=== PATIENT | female | born 1955 | race Two or more races ===

== ENCOUNTER → 2024-09-29 | Outpatient (CLI) | payer OTHER, SELFPAY ==
--- NOTE | 2024-09-29 09:00 | XR_ITS ---
Examination: Screening digital mammography, bilateral Computer aided detection 3-D breast Tomosynthesis, bilateral Date and time of exam: 09/29/2024, 9:10 AM Comparisons: Not available. If prior mammograms can be obtained recommend comparison with today's exam Indications: Screening Technique: Nonmagnified MLO, CC views of the breasts to been obtained, reconstructed from 3-D Tomosynthesis images. R2 computer aided detection program utilized for evaluation of suspicious masses and/or abnormal calcifications. 3-D Tomosynthesis images obtained. Technologist: Findings: There are scattered areas of fibroglandular density. Ill-defined spiculated mass right upper inner quadrant, posterior depth. Otherwise, no evidence of abnormal masses or suspicious calcifications. Impression: Spiculated mass right upper inner quadrant. Spot compression views and ultrasound evaluation recommended BI-RADS category 0: Incomplete assessment; need additional imaging evaluation
== END | disposition home or self-care (01) ==
LOC: CDIM 08:57
PROVIDERS: Referring Provider Physician Assistant Medical; Visit Provider Physician Assistant Medical
DX: Z12.31 Encounter for screening mammogram for malignant neoplasm of breast (principal); N63.12 Unspecified lump in the right breast, upper inner quadrant; R92.8 Other abnormal and inconclusive findings on diagnostic imaging of breast
CPT/HCPCS: 77063; 77067

== ENCOUNTER → 2025-01-02 | Outpatient (CLI) | payer OTHER, SELFPAY ==
--- NOTE | 2025-01-02 08:58 | XR_ITS ---
Examination: Diagnostic digital mammography, unilateral, right Computer aided detection 3-D breast Tomosynthesis, unilateral Date and time of exam: January 02, 2025 0910 hours INDICATIONS: Spiculated mass inner upper right breast on mammogram September 29, 2017 Technique: Nonmagnified MLO, CC views of the right breast have been obtained, reconstructed from 3-D Tomosynthesis images. R2 computer aided detection program utilized for evaluation of suspicious masses and/or abnormal calcifications. 3-D Tomosynthesis images obtained. Findings: Scattered areas of fibroglandular density 2:00 spiculated mass right breast posterior depth Impression: BI-RADS category 4: Suspicious for malignancy Suspicious mass 2:00 position right breast, biopsy is needed to exclude breast carcinoma This mass is amenable to ultrasound-guided breast biopsy for diagnosis
--- NOTE | 2025-01-02 09:00 | XR_ITS ---
Examination: Breast ultrasound complete, bilateral Date and time of exam: January 02, 2025 0807 hours INDICATIONS: Mammogram September 29, 2024 spiculated mass upper inner quadrant right breast Technique: Real-time grayscale ultrasonographic imaging bilateral breasts, including all 4 quadrants as well as nipple retroareolar and axillary regions. Findings: Sonographic images right breast 2:00 irregular mass spiculated margins 11 x 10 x 11 mm IMPRESSION: BI-RADS Category 4: Suspicious for malignancy Suspicious mass 2:00 position right breast, biopsy is needed to exclude breast carcinoma, this mass is amenable to ultrasound-guided breast biopsy for diagnosis
== END | disposition home or self-care (01) ==
LOC: CDIM 07:54
PROVIDERS: PCP Physician Assistant; Referring Provider Physician Assistant Medical; Visit Provider Physician Assistant Medical
DX: N63.12 Unspecified lump in the right breast, upper inner quadrant (principal); R92.321 Mammographic fibroglandular density, right breast
CPT/HCPCS: 76641; 77061; 77065; G0279

== ENCOUNTER 2025-04-04 02:03 | Emergency (ER) | payer OTHER, MEDICAID, SELFPAY ==
[2025-04-04 02:04] VITALS: BP 180/91; PULSE 68; RESP 19; TEMP 36.4; O2SAT 96
[2025-04-04 02:05] VITALS: BMI 30.1
--- NOTE | 2025-04-04 02:47 | PD.EDURI ---
Upper Respiratory Inf. RME/HPI General Chief Complaint: Flu Like Symptoms Stated Complaint: CONGESTION AND HEAD PRESSURE Time Seen by Provider: 04/04/25 02:44 Arrival date/time: 04/04/25 02:03 69F with history of GERD and seasonal allergies presents to ED with 1 day of sinus pain/pressure, nasal congestion, and watery eyes. Patient/daughter deny abnormal speech/behavior, AMS, seizures, and N/V. Patient also had some itchiness on her face. Limitations: no limitations Related Data Previous Rx's ?Medication ?Instructions ?Recorded prednisone 20 mg tablet 20 mg PO BID 3 days #6 tabs 04/04/25 Allergies Allergy/AdvReac Type Severity Reaction Status Date / Time No Known Allergies Allergy Verified 04/04/25 02:07 Review of Systems Review of Systems Systems Reviewed: All systems reviewed, normal except as documented Eyes Eyes: Reports as per HPI and Reports other (watering) ENT Ears, Nose, Mouth, and Throat: Reports as per HPI, Reports nasal congestion, Reports sinus pain and Reports sinus pressure Integumentary/Breasts Skin/Breast: Reports as per HPI and Reports pruritus Past Medical History Social History SMOKING STATUS: Never smoker ED Exam General Limitations: Present no limitations General appearance: Present alert and in no apparent distress Head Head exam: Present atraumatic Eye Eye exam: Present PERRL, EOMI and conjunctival injection (mild) Expanded ENT Exam Nose exam: Present sinus tenderness Neck Neck exam: Present normal inspection, full ROM and trachea midline Chest Chest inspection: Present normal inspection and symmetric chest wall rise Extremities Exam Extremities exam: Present normal inspection and full ROM Neurological Exam Neurological exam: Present alert, oriented X3 and CN II-XII intact Psychiatric Psychiatric exam: Present normal affect and normal mood Skin Skin exam: Present warm, dry, intact and normal color Course Quality Measures none Orders Category Date Time Status Bedside COVID-19 Antigen Test NOW Care 04/04/25 02:14 Active Bedside Influenza A&B Antigen Test NOW Care 04/04/25 02:14 Completed Dexamethasone Inj [Decadron Inj] Med 04/04/25 02:44 Discontinued 10 mg PO X1 ONE Vital Signs Vital signs: Vital Signs Temperature 97.6 F 04/04/25 02:04 Pulse Rate 68 04/04/25 02:04 Respiratory Rate 19 04/04/25 02:04 Blood Pressure 180/91 H 04/04/25 02:04 Pulse Oximetry (%) 96 04/04/25 02:04 Oxygen Delivery Method Room Air 04/04/25 02:04 O2 at 96% on RA and WNLs Upper Respiratory Infection MDM Narrative MDM Narrative:: 69F with history of GERD and seasonal allergies presents to ED with 1 day of sinus pain/pressure, nasal congestion, and watery eyes. Patient/daughter deny abnormal speech/behavior, AMS, seizures, and N/V. Patient also had some itchiness on her face. Physical exam reveals nasal congestion and mild sinus tenderness. Watery eyes with some conjunctivitis, but no discharge. Normal WOB. CN II-XII grossly intact. Gait and speech normal. Neg pronator drift test. No obvious rash. Patient is afebrile, calm, and alert. Swabs neg. Steroids improved symptoms. Patient data External records reviewed:: [facility] previous records Clinical information provided by:: patient Social determinants that could affect healthcare access:: none Patient has the following chronic illnesses:: GERD and seasonal allergies How is presenting disease/condition affected by chronic disease/condition?: exacerbated by Evaluation data The following diagnostics were reviewed and interpreted by me:: lab results Lab and/or radiology exams considered but not ordered:: ordered Interpretation Summary: above Medications / Prescriptions Medications or Prescriptions considered but not ordered:: ordered Medication administrations:: Medication Administration History Discontinued Medications Dexamethasone Sodium Phosphate (Dexamethasone Sod Phos Inj 10 Mg/Ml Vial) 10 mg PO X1 ONE Stop: 04/04/25 02:45 Last Admin: 04/04/25 02:51 Dose: 10 mg Documented By: SF above Consultations Consultation(s) initiated? (list below): No Diagnosis Upper Respiratory Differential Diagnosis: upper respiratory infection, croup, otitis media, sinusitis, viral infection, bronchitis, influenza and pharyngitis Most likely diagnosis given after review of the tests above:: sinusitis Admission Indicated Admission indicated?: not indicated Admission Request Was there a request for admission?: No Disposition Plan Disposition Plan: Discharge Discharge Attestation Discharge Attestation: The patient and all family members were given an opportunity to ask questions and understood the discharge instructions. Discharge instructions specifically effects, indications for sooner follow up or return to the emergency department, and the expected course of current diagnosis. Patient condition: Stable Discharge Plan Plan Patient Disposition: HOME (Self Care) Discharge Disposition comment: Stable Prescriptions/Referrals Prescriptions/Med Rec: New prednisone 20 mg tablet 20 mg PO BID 3 Days Qty: 6 0RF Referrals: Shawnee Elias PA-C [Primary Care Provider, Emergency Medicine] - In 1 week Problem List Clinical Impression: Sinusitis Patient/Caregiver Discharge Instructions Education Materials: ED Sinusitis (No Antibiotics) Additional Instructions: Please follow-up with PCP within 24-48 hours and return immediately if symptoms worsen. Take OTC antihistamine as needed until symptoms resolve. Finish entire steroid course. Print Language: Filipino Stand Alone Forms: Patient Portal Info Letter GILLIAN/SALEEM Supervising Physician TETO Supervising Physician: Dr. Arizmendi
[2025-04-04] MEDS: DEXAMETHASONE SOD PHOS INJ 10 MG/ML VIAL PO (02:51)
[2025-04-04 04:58] VITALS: BP 179/81; PULSE 62; RESP 16; TEMP 36.4; O2SAT 97
== END 2025-04-04 04:59 | disposition home or self-care (01) ==
PROVIDERS: Emergency Provider Emergency Medicine; PCP Physician Assistant
DX: J32.9 Chronic sinusitis, unspecified (principal)
CPT/HCPCS: 87400; 87811; 99283; J1100

== ENCOUNTER 2025-04-30 08:34 | Outpatient (RCR) | payer OTHER, MEDICAID, SELFPAY ==
--- NOTE | 2025-05-01 05:58 | CTCCONSULT_ITS ---
Patient: IVETTE DUQUE : 1955 MR#: [id number] Page 2 of 3 CONSULTATION NOTE DATE OF CONSULTATION: 04/30/2025 NAME: IVETTE DUQUE ACCOUNT: [id number] : 1955 AGE: 69 REFERRING PHYSICIAN: Bola Teague MD PRIMARY PHYSICIAN: REASON FOR VISIT: New breast cancer ONCOLOGY HISTORY: DIAGNOSIS: Breast cancer DATE OF DIAGNOSIS: 03/07/2025 STAGE/TNM: Unknown ER/CT +820 TREATMENT HISTORY: Care?Plan Start?Date Cycle Day Intent how IRS the last dated:ADDENDUM: . 03/28/2025 A . HISTORY OF PRESENT ILLNESS: 69-year-old female was found to have breast mass in september 2024 . patient had biopsy and is planned for lumpectomy . Patient will need radiation . Patient will need antiendocrine therapy . OTHER MEDICAL HISTORY/CONDITIONS: RIGHT?BR?CA DENIES FAMILY HISTORY: Father:?DENIES Mother:?BRAIN-UNKOWN Sibling:?DENIES Children:?DENIES Cancer?History:?DENIES SOCIAL HISTORY: Occupational?History:?RETIRED Education?Level:?Completed something less than 8th grade Marital?Status:? Tobacco?Use:?DENIES Drug?Note:?DENIES Social?History?Note:?LIVES?WITH? SECURITY MESSENGER HISTORY: Menarche?-?Age:?17 Date?of?last?pap?smear:?04/18/2015 :?4 Live?Births:?3 Age?1st?:?32 MEDICATIONS: 1. omeprazole - 20 mg 1 Capsule Daily Medications Last Reconciled by Margaret Beckham MA on 04/30/2025 ALLERGIES: No Known Drug Allergies REVIEW OF SYSTEMS: A complete 14-point review of systems was performed and is negative except as noted in interval history. PHYSICAL EXAMINATION: VITAL SIGNS: Temperature?99, B/P?139/78, Height?63?inches, Oxygen?Saturation?96% Weight?177?lbs PAIN: 3 - Between mild and moderate pain ECOG Performance Status: 0 - Asymptomatic and fully active GENERAL APPEARANCE: Appears well, in no apparent distress, appropriately interactive. HEENT: Normocephalic, no temporal wasting, normal conjunctiva, no scleral icterus, normal hearing, lips without lesions, neck normal range of motion. CARDIOVASCULAR: Not assessed. PULMONARY: Normal respiratory effort, no respiratory distress or use of accessory muscles, speaking in full sentences, no tachypnea. EXTREMITIES: No pedal edema or cyanosis. SKIN: Normal skin appearance. NEUROLOGIC: Alert and oriented x4. PSHYCHIATRIC: Appropriate affect, mood normal, behavior normal, intact thought and speech. Breast examination revealed biopsy subtle mildly bruised. No discrete masses LABORATORY DATA: I have personally reviewed and interpreted each of the patient?s relevant lab tests, abnormal findings are below: Date ASSESSMENT/PLAN: Right breast cancer ER/CT positive ER 90% CT 10% HER2 1+ low Patient scheduled for lumpectomy next week on Wednesday Advised to start anastrozole after the surgery Take calcium and vitamin D daily Will get bone density completed and Oncotype Will refer to radiation RTC a few months ORDERS: Order # Description [id number] DXA L-Spine and Hip [id number] MD Follow Up 3 Week [id number] Comprehensive Metabolic Panel - 12 + CBC with Auto Diff RETURN TO CLINIC: I reviewed the diagnosis, prognosis, and recommended treatment/procedure options with the patient (and/or their legal customer retention representative), including the potential benefits, risks, side effects and alternative therapies. We also discussed the option of no treatment and the possibility of clinical trial participation, if applicable. All questions were addressed, and they demonstrated understanding. They provided informed consent to proceed with the proposed plan of care. BILLING AND COMPLIANCE: I reviewed external records from providers outside my specialty as summarized above. I spent a total of 50 minutes on this patient?s care on the day of their visit excluding time spent related to any billed procedures. This time includes time spent with the patient as well as time spent documenting in the medical record, reviewing patients records and tests, obtaining history, placing orders, communicating with other healthcare professionals, counseling the patient, family or caregiver, and/or care coordination for the diagnoses above. Electronically Signed by: {Object.Sanct_ID*PnP.NameFL@M}, {Object.Sanct_ID*PnP.Suffix@U} D: {Object.Sanct_Date} T: {Object.Sanct_Time} CC: PCP: Referring: Bola Teague This document was completed utilizing speech recognition software. Grammatical errors, random word insertions, pronoun errors, and incomplete sentences are an occasional consequence of this system due to software limitations, ambient noise, and hardware issues. Any formal questions or concerns about the content, text or information contained within the body of this dictation should be directly addressed to the provider for clarification.
== END 2025-05-18 23:59 | disposition home or self-care (01) ==
LOC: SCTC 08:34
PROVIDERS: PCP Physician Assistant; Referring Provider Specialist; Visit Provider Internal Medicine Hematology & Oncology
DX: C50.211 Malignant neoplasm of upper-inner quadrant of right female breast (principal); Z17.0 Estrogen receptor positive status [ER+]; Z17.21 Progesterone receptor positive status; Z17.32 Human epidermal growth factor receptor 2 negative status; Z90.11 Acquired absence of right breast and nipple
CPT/HCPCS: 99213; G0463

== ENCOUNTER 2025-05-07 07:20 | Day surgery (SDC) | payer OTHER, SELFPAY ==
--- NOTE | 2025-05-04 06:09 | EKG_ITS ---
[facility] Test Date: 2025-05-04 Pat Name: IVETTE DUQUE Department: Room: - Gender: Female Case Consultant: DAMASO : 1955 Requested By: Bola Teague Order Number: [id number] Reading MD: Bola Teague Measurements Intervals [place] Rate: 63 P: 13 ME: 154 QRS: 77 QRSD: 101 T: 67 QT: 398 QTc: 409 Interpretive Statements SINUS RHYTHM No previous ECG available for comparison /store/S0/[id number]/ecg/[id number].pdf
[2025-05-04 07:58] VITALS: BMI 31.2
[2025-05-04 08:35] LABS: Collection Type, Urine Clean Catch
[2025-05-04 09:03] LABS: Bacteria,Urine Rare; Bilirubin,Urine Negative (Negative); Blood,Urine Negative (Negative); Clarity,Urine Clear (Clear/Hazy); Color,Urine Lt-Yellow (Lt Yel-Yel); Glucose, Urine Negative (Negative); Ketones,Urine Negative (Negative); Leukocyte Esterase,Urine Positive (Negative); Nitrite,Urine Negative (Negative); PH,Urine 7.0 (5.0-7.0); Protein,Urine Negative (Neg - Trace); RBC,Urine 3 /hpf (0-3); Specific Gravity,Urine 1.007 (1.001-1.035); Squamous Epithelial Cell,Urine 4 /hpf (0-5); Urobilinogen,Urine Negative mg/dL (0.0-1.0); WBC,Urine 8 /hpf (0-5)
[2025-05-04 09:04] LABS: Basophils # (Auto) 0.1 Thou/mm3 (0.0-0.2); Basophils % (Auto) 1 % (0-2.5); Eosinophils # (Auto) 0.2 Thou/mm3 (0.0-0.5); Eosinophils % (Auto) 3 % (0-10); Hematocrit 41.0 % (36.0-46.0); Hemoglobin 14.1 g/dL (12.0-16.0); Immature Granulocytes Auto 0.04 Thou/mm3 (0.00-0.00); Lymphocytes # (Auto) 2.3 Thou/mm3 (1.0-4.8); Lymphocytes % (Auto) 30 % (10-50); Mean Corpuscular HGB Conc 34.4 g/dl (31.0-37.0); Mean Corpuscular Hemoglobin 31.9 pg (25.0-35.0); Mean Corpuscular Volume 93 fL (80-100); Monocytes # (Auto) 0.5 Thou/mm3 (0.0-0.8); Monocytes % (Auto) 7 % (0-12); Neutrophils # (Auto) 4.6 Thou/mm3 (1.8-7.7); Neutrophils % (Auto) 59 % (37-80); Nucleated Red Blood Cell # 0.00 Thou/mm3 (0.00-0.00); Nucleated Red Blood Cell % 0 /100 WBC (0); Platelet Count 297 Thou/mm3 (140-440); RDW Standard Deviation 40.2 fL (36.4-46.3); Red Blood Count 4.42 Miln/mm3 (4.00-5.20); White Blood Count 7.8 Thou/mm3 (3.6-11.0)
[2025-05-04 09:06] LABS: Partial Thromboplastin Time 28.1 Seconds (22.0-36.0)
[2025-05-04 09:07] LABS: Alanine Aminotransferase 20 U/L (10-49); Albumin, Serum 4.5 gm/dL (3.4-4.8); Albumin/Globulin Ratio 1.7 (1.2-2.2); Alkaline Phosphatase 112 U/L (46-116); Anion Gap 7 (7-16); Aspartate Amino Transferase 23 U/L (0-34); BUN/Creatinine Ratio 9 Ratio (12-20); Bilirubin,Total 0.5 mg/dL (0.3-1.2); Blood Urea Nitrogen 7 mg/dL (9-23); Calcium 10.2 mg/dL (8.3-10.6); Calcium (Corrected) 10.2 mg/dL (8.5-10.1); Carbon Dioxide 29.0 mMol/L (20.0-31.0); Chloride 105 mMol/L (98-107); Creatinine (Component) 0.8 mg/dL (0.6-1.3); Estimated Creatinine Clearance 68.4 mL/min (>60); Globulin 2.6 gm/dL (2.3-3.5); Glucose 80 mg/dL (74-106); Osmolality,Calculated 278 (275-295); Potassium 4.4 mMol/L (3.4-5.1); Sodium 141 mMol/L (136-145); Total Protein 7.1 gm/dL (5.7-8.2); eGFR > 60 See Note
[2025-05-07] VITALS (8 sets, daily range): BP systolic 132–161; BP diastolic 65–86; PULSE 74–110; RESP 13–20; TEMP 36.3–36.6; O2SAT 94–98; BMI 31.3
--- NOTE | 2025-05-07 09:00 | XR_ITS ---
EXAMINATION: Nuclear medicine lymph glands imaging [place] lymph node study right breast Date and time: May 07, 2025, 0900 hours INDICATIONS: Diagnosis malignant neoplasm of upper-inner quadrant of right female breast, preop, lymph node dissection today TECHNIQUE AND FINDINGS: Informed consent provided. Timeout performed. Skin prepped over the right breast sterile drape applied hand hygiene 1% lidocaine administered for local anesthesia subareolar Subareolar injection 2.0 mCi Tc 99m filtered sulfur colloid, no imaging Estimated blood loss 0 cc IMPRESSION: Successful sentinel lymph node study as above
--- NOTE | 2025-05-07 10:46 | SUR.PREOP ---
Patient expressed gratitude for prayer before heir procedure.
--- NOTE | 2025-05-07 13:45 | SUR.PHASEI ---
pt arrived to PACU via gurney drowsy but arouses to voice, breathing unlabored, dressing to right breast clean, dry, and intact with breast binder in place, report from Jackson TOWNSEND and Dr Copeland
--- NOTE | 2025-05-07 13:52 | ESOP_ITS ---
Date of Procedure 05/07/25 Pre Op Diagnosis Right breast cancer at 1 o'clock position Post Op Diagnosis Same Procedure Right breast lesion localization with ultrasound partial mastectomy and sentinel lymph node biopsy. On May 07, 2025 Findings This patient has a biopsy-proven right breast cancer at 1 o'clock position and marker was placed. Ultrasound was carried out prior to the procedure and the location is marked on the surface. Patient had undergone radioactive tracer injection under the nipple areola earlier in the morning and then she is brought over. She does have radioactivity in the axilla and 3 lymph nodes were removed with high radioactive counts. There were no other particular findings. Procedure Description The patient is interviewed in the preop area and site and side were marked. The procedure was discussed in great detail with the patient and the family member. All questions were answered and informed consent is obtained. Patient was then taken to the operating room and patient is positioned supine on the operating table. The general anesthesia was administered in a satisfactory manner. This patient underwent ultrasound examination with 7.5 MHz ultrasound probe. The marker location was noted at 1 o'clock position is marked on the surface. Partial mastectomy area was delineated after that. She also had a neoprobe examination of the right axilla and the high activity count was marked on the surface. Patient was prepped and draped in usual manner. The axillary dissection for the sentinel lymph node biopsy was carried out first. A curvilinear incision is made at the in the floor of the right axilla. Subcutaneous tissues divided and the lymph nodes were identified with the neoprobe. The first lymph node had a count of 289. The second lymph node had a count of 400. The third 1 had count of 600. All these were confirmed as lymph nodes and then sent off as specimen. Hemostasis is achieved to the axillary dissection is completed this way there were no other areas of high radioactive counts. The subcutaneous tissue was approximated by 3-0 Vicryl and skin by cuco. After the axillary fork is carried out the laps and instrument counts were correct x 2. The attention is then diverted to the 1 o'clock position for partial mastectomy. A separate incision was made after infiltration of the local anesthesia. The upper and lower flaps were drawn on the surface. A curvilinear transverse incision was made and deepened through the skin and subcutaneous tissue. The flaps were developed at the level of skin and subcutaneous tissue. The superficial fascia was included in the resection. The upper flap was developed up to the first rib. The lower flap was developed up to the 5th rib. The breast tissue that was underneath the nipple areola was also included in the resection. Medially and laterally there is a wide area of resection. Posteriorly the pectoralis fascia and portion of the muscle was also included in the resection as ultrasonically the tumor was found to be sitting right on the pectoral fascia. After this the tissue was oriented for the pathologist and sent off for margin determination. The report is removed tissue is noted to have a clear gross margins. Hemostasis was achieved along the way. Operative field is thoroughly irrigated with saline solution and hemostasis was obtained and then the flaps were approximated without any tension. The skin flaps were approximated by 3-0 Vicryl interrupted sutures in a satisfactory manner. Cuco were used to close the skin. Sterile dressing was applied. Patient tolerated the procedure very well complications none. Anesthesia GETA Drains None. Implants Implants comments: None. Pathology / specimen Other (Right breast partial mastectomy at 1 o'clock position, sentinel lymph node #1, lymph node #2, lymph node #3) Estimated Blood Loss 10 Condition Stable Disposition PACU Surgeon Bola Teague MD Surgical Staff Operation Date: 05/07/25 11:15 Case Staff Anesthesiologist: Reji Copeland RNrn house supervisor: Martine Sanchez RN staff developer Margaret cardiovascular surgical tech Isaac cardiovascular surgical tech
--- NOTE | 2025-05-07 14:00 | SUR.PHASEI ---
pt tolerating ice chips without difficulty swallowing or n/v
--- NOTE | 2025-05-07 15:05 | SUR.PHASEII ---
pt awake, alert, able to follow commands, breathing unlabored, dressing to right breast clean, dry, and intact with breast binder in place, VS stable, pt able to dress self and ambulate with steady gait to wheelchair, discharge instructions given with daughter Carol over the phone with in house scrap bunch maker Lora present, all questions answered, pt discharged via wheelchair with all belongings and copies of discharge paperwork.
== END 2025-05-07 15:05 | disposition home or self-care (01) ==
PROVIDERS: PCP Physician Assistant; Referring Provider Specialist; Visit Provider Specialist
PROC: (CPT 19101; principal; 2025-05-07 11:00)
DX: C50.211 Malignant neoplasm of upper-inner quadrant of right female breast (principal); Z01.810 Encounter for preprocedural cardiovascular examination
CPT/HCPCS: 19302; 38900; 36415; 80053; 81001; 85025; 85730; 93005; A4649; A9541; J0131; J0690; J1100; J2371; J2704; J2765; J3010; J3490; Q9968; J0665

== ENCOUNTER 2025-06-12 10:11 | Outpatient (RCR) | payer OTHER, SELFPAY ==
--- NOTE | 2025-05-21 10:51 | CTCFLWUP_ITS ---
Patient: IVETTE DUQUE : 1955 Page 2 of 4 FOLLOW UP NOTE DATE OF SERVICE: 05/21/2025 NAME: IVETTE DUQUE ACCOUNT: [id number] : 1955 AGE: 69 INTERVAL HISTORY: Patient is doing well. Patient had lumpectomy . ONCOLOGY HISTORY: DIAGNOSIS: Breast cancer DATE OF DIAGNOSIS: 03/07/2025 STAGE/TNM: Unknown ER/IA + her2 negaitve s/p lumpectomy on 05/07/2025 [id number] TREATMENT HISTORY: Care?Plan Start?Date Cycle Day Intent HISTORY OF PRESENT ILLNESS: 69-year-old female was found to have breast mass in september 2024 . patient had biopsy and is planned for lumpectomy . Patient will need radiation . Patient will need antiendocrine therapy . OTHER MEDICAL HISTORY/CONDITIONS: RIGHT?BR?CA DENIES FAMILY HISTORY: Father:?DENIES Mother:?BRAIN-UNKOWN Sibling:?DENIES Children:?DENIES Cancer?History:?DENIES SOCIAL HISTORY: Occupational?History:?RETIRED Education?Level:?Completed something less than 8th grade Marital?Status:? Tobacco?Use:?DENIES Drug?Note:?DENIES Social?History?Note:?LIVES?WITH? WEB MANAGER HISTORY: Menarche?-?Age:?17 Date?of?last?pap?smear:?04/18/2015 :?4 Live?Births:?3 Age?1st?:?32 MEDICATIONS: 1. Arimidex - 1 mg 1 tab Daily 2. omeprazole - 20 mg 1 Capsule Daily Medications Last Reconciled by Margaret Gandhi MD on 05/21/2025 ALLERGIES: No Known Drug Allergies REVIEW OF SYSTEMS: A complete 14-point review of systems was performed and is negative except as noted in interval history. PHYSICAL EXAMINATION: VITAL SIGNS: Temperature?98.2, B/P?134/69, Oxygen?Saturation?97% Weight?176?lbs (Change?since?04/30/25:?-1?lbs) PAIN: 0 - No pain ECOG Performance Status: 0 - Asymptomatic and fully active GENERAL APPEARANCE: Appears well, in no apparent distress, appropriately interactive. HEENT: Normocephalic, no temporal wasting, normal conjunctiva, no scleral icterus, normal hearing, lips without lesions, neck normal range of motion. CARDIOVASCULAR: Not assessed. PULMONARY: Normal respiratory effort, no respiratory distress or use of accessory muscles, speaking in full sentences, no tachypnea. EXTREMITIES: No pedal edema or cyanosis. SKIN: Normal skin appearance. NEUROLOGIC: Alert and oriented x4. PSHYCHIATRIC: Appropriate affect, mood normal, behavior normal, intact thought and speech. Breast examination revealed biopsy subtle mildly bruised. No discrete masses LABORATORY DATA: I have personally reviewed and interpreted each of the patient?s relevant lab tests, abnormal findings are below: Date 05/04/25 ??WHITE?BLOOD?COUNT?(Thou/mm3) 7.8 ??RED?BLOOD?COUNT?(Miln/mm3) 4.42 ??HEMOGLOBIN?(gm/dl) 14.1 ??HEMATOCRIT?(%) 41.0 ??PLATELET?COUNT?(Thou/mm3) 297 ??NEUTROPHILS?%,?AUTO?(%) 59 ??LYMPH?%,?AUTO?(%) 30 ??NEUTROPHILS,?AUTO?(Thou/mm3) 4.6 ??GLUCOSE,RANDOM?(mg/dL) 80 ??BLOOD?UREA?NITROGEN?(mg/dL) 7?L ??CREATININE?(mg/dL) 0.80 ??SODIUM?(mmol/L) 141 ??POTASSIUM?(mmol/L) 4.4 ??CHLORIDE?(mmol/L) 105 ??CrCl?(CandG)?(ml/min) 69.56 ??AST/SGOT?(Unit/L) 23 ??ALT/SGPT?(Unit/L) 20 ??ALKALINE?PHOSPHATASE?(Unit/L) 112 ??BILIRUBIN,?TOTAL?(mg/dL) 0.5 ??PROTEIN?TOTAL?(gm/dl) 7.1 ??ALBUMIN,?SERUM?(gm/dl) 4.5 ??GLOBULIN?(gm/dl) 2.6 ??ALBUMIN/GLOBULIN?RATIO 1.7 ??CALCIUM,?SERUM?(mg/dL) 10.2 ??CALCIUM?SERUM?(CORRECTED)?(mg/dL) 10.2?H ASSESSMENT/PLAN: Right breast cancer ER/IA positive ER 90% IA 10% HER2 1+ low Completed lumpectomy Take calcium and vitamin D daily l get bone density completed and Oncotype results refer to radiation RTC in 2 weeks with oncotype results ORDERS: Order # Description [id number] RETURN TO CLINIC: I reviewed the diagnosis, prognosis, and recommended treatment/procedure options with the patient (and/or their legal field representative), including the potential benefits, risks, side effects and alternative therapies. We also discussed the option of no treatment and the possibility of clinical trial participation, if applicable. All questions were addressed, and they demonstrated understanding. They provided informed consent to proceed with the proposed plan of care. BILLING AND COMPLIANCE: I reviewed external records from providers outside my specialty as summarized above. I spent a total of 50 minutes on this patient?s care on the day of their visit excluding time spent related to any billed procedures. This time includes time spent with the patient as well as time spent documenting in the medical record, reviewing patients records and tests, obtaining history, placing orders, communicating with other healthcare professionals, counseling the patient, family or caregiver, and/or care coordination for the diagnoses above. Electronically Signed by: Jose Antonio Luna MD T: 10:48 AM CC: Shawnee?Curt?(lotus),? PCP: Shawnee Elias ([place]) Referring: Shawnee Elias ([place]) This document was completed utilizing speech recognition software. Grammatical errors, random word insertions, pronoun errors, and incomplete sentences are an occasional consequence of this system due to software limitations, ambient noise, and hardware issues. Any formal questions or concerns about the content, text or information contained within the body of this dictation should be directly addressed to the provider for clarification.
== END 2025-06-17 23:59 | disposition home or self-care (01) ==
LOC: SCTC 10:11
PROVIDERS: PCP Physician Assistant; Referring Provider Physician Assistant; Visit Provider Radiology Therapeutic Radiology
DX: C50.211 Malignant neoplasm of upper-inner quadrant of right female breast (principal); Z17.0 Estrogen receptor positive status [ER+]; Z17.21 Progesterone receptor positive status; Z17.32 Human epidermal growth factor receptor 2 negative status; Z90.11 Acquired absence of right breast and nipple
CPT/HCPCS: 99212; 99213; G0463

== ENCOUNTER → 2025-07-04 | Outpatient (CLI) | payer OTHER, SELFPAY ==
--- NOTE | 2025-07-04 12:20 | XR_ITS ---
Examination: Bone densitometry Date and time of exam: July 04, 2025, 1224 hours INDICATIONS: Menopause age 52, diagnosis right breast cancer, family history, mother, osteoporosis Technique: Lumbar spine and hip total bone mineralization values of an calculated. Peak reference and age match control results have been displayed. Findings: Lumbar spine total bone mineralization is 1.881 gm/cm2. This is 1.5 standard deviations below peak reference. This is 0.5 standard deviations above age-matched controls. Hip total bone mineralization is 0.876 gm/cm2 This is 0.6 standard deviations below peak reference. This is 0.7 standard deviations above age-matched controls Impression: There is osteopenia based on lumbar spine measurements. There is osteopenia based on hip measurements
== END | disposition home or self-care (01) ==
LOC: CDIM 11:27
PROVIDERS: Referring Provider Internal Medicine Hematology & Oncology; Visit Provider Internal Medicine Hematology & Oncology
DX: M85.89 Other specified disorders of bone density and structure, multiple sites (principal); C50.211 Malignant neoplasm of upper-inner quadrant of right female breast
CPT/HCPCS: 77080